=== PATIENT | female | born 1990 | race Caucasian/White ===

== ENCOUNTER 2021-11-17 14:46 | Inpatient (IN) | payer OTHER ==
[2021-11-17] MEDS ORDERED: hydrALAZINE 20 MG/ML VIAL SLOW IVP PRN ×2 (15:13→16:41)
[2021-11-17] MEDS ORDERED: Lactated Ringer's 1,000 ML IV SCH (15:15)
[2021-11-17] MEDS ORDERED: Betamet Acet/Betamet Na Ph 30 MG/5 ML VIAL IM SCH (16:00)
[2021-11-17] MEDS ORDERED: Acetaminophen 500 MG TAB PO PRN (16:41)
[2021-11-17] MEDS ORDERED: Ondansetron PF 4 MG/2 ML Vial IVP PRN (16:41)
[2021-11-17] MEDS ORDERED: Promethazine HCl 25 MG/ML VIAL IM PRN (16:41)
[2021-11-17 16:51] LABS: #Basophils 0.1 10x3/uL (0.0-0.2); #Eosinphils 0.2 10x3/uL (0.0-0.5); #Monocytes 0.8 10x3/uL (0.0-1.1); #Neutrophils 8.6 10x3/uL (1.5-8.4); %Basophils 0.5 % (0.0-2.0); %Eosinophils 1.8 % (0.0-6.0); %Lymphocytes 18.3 % (18.0-47.0); %Monocytes 6.9 % (0.0-10.0); Hemoglobin 9.3 g/dL (12.0-15.5); Mean Corpuscular HGB CONC 33.1 g/dL (32.0-36.0); Mean Corpuscular Hemoglobin 29.5 pg (27.0-33.0); Mean Corpuscular Volume 89.2 fl (81.6-98.3); Mean Platelet Volume 10.3 fl (7.4-10.4); Platelet Count 238 10x3/uL (150-450); Red Blood Cell (RBC) Count 3.15 10x6/uL (3.90-5.03); White Blood Cell (WBC) Count 11.9 10x3/uL (3.5-10.5)
[2021-11-17 17:37] VITALS: BMI 33.6
[2021-11-17] MEDS: Lactated Ringer's 1,000 ML IV SCH (20:27)
[2021-11-18] MEDS: Lactated Ringer's 1,000 ML IV SCH ×3 (00:08→18:16)
[2021-11-18] MEDS ORDERED: Zolpidem Tartrate 5 MG TAB PO SCH (00:15)
[2021-11-18] MEDS ORDERED: Prenatal Vitamin 1 TAB PO SCH (09:00)
[2021-11-18] MEDS ORDERED: ceFAZolin 2 GM/Dextrose 50 ML IVPB ONE (10:50)
[2021-11-18 11:29] LABS: RapidComm Collect By NURSE
[2021-11-18] MEDS ORDERED: Naloxone HCl 0.4 mg/ml Vial IV PRN (11:36)
[2021-11-18] MEDS ORDERED: diphenhydrAMINE 50 MG/ML VIAL IVP PRN (11:36)
[2021-11-18] MEDS ORDERED: diphenhydrAMINE 50 MG/ML VIAL IM PRN (11:36)
[2021-11-18] MEDS ORDERED: Ondansetron PF 4 MG/2 ML Vial IVP PRN ×2 (11:36→12:14)
[2021-11-18] MEDS ORDERED: Promethazine HCl 25 MG/ML VIAL IM PRN (11:36)
[2021-11-18] MEDS ORDERED: Zolpidem Tartrate 5 MG TAB PO PRN (11:36)
[2021-11-18] MEDS ORDERED: diphenhydrAMINE 25 MG CAP PO PRN ×2 (11:36→12:14)
[2021-11-18] MEDS ORDERED: Communication Order-Pharmacy FS SCH (11:45)
[2021-11-18] MEDS ORDERED: Lidocaine 1% PF 5 ML VIAL ONE ×2 (11:46→11:47)
[2021-11-18] MEDS ORDERED: PROPOFOL 20 ML ONE (11:47)
[2021-11-18] MEDS ORDERED: Dexamethasone 4 mg/ml Vial ONE (11:47)
[2021-11-18] MEDS ORDERED: Ondansetron PF 4 MG/2 ML Vial ONE (11:47)
[2021-11-18] MEDS ORDERED: PHENYLEPHRINE-NS 100 MCG/ML 10 ML SYRINGE ONE (11:47)
[2021-11-18] MEDS ORDERED: Ketorolac Tromethamine 30 MG/ML VIAL ONE (11:47)
[2021-11-18] MEDS ORDERED: Fentanyl 250 MCG/5 ML VIAL ONE (11:47)
[2021-11-18] MEDS ORDERED: Fentanyl 100 MCG/2 ML VIAL ONE (11:47)
[2021-11-18] MEDS ORDERED: Oxytocin 10 UNITS/ML VIAL ONE (11:49)
[2021-11-18 12:13] LABS: SARS-CoV-2 PCR by NAA Not Detected (NotDetected)
[2021-11-18] MEDS ORDERED: Bisacodyl 10 MG SUPP PR PRN (12:14)
[2021-11-18] MEDS ORDERED: Lanolin Ointment 7 GM TUBE TOP PRN (12:14)
[2021-11-18] MEDS ORDERED: Simethicone Chewable 80 MG TAB PO PRN (12:14)
[2021-11-18] MEDS ORDERED: Acetaminophen 325 MG TAB PO PRN (12:14)
[2021-11-18] MEDS ORDERED: Misoprostol 200 MCG TAB PR PRN (12:14)
[2021-11-18] MEDS ORDERED: hydrALAZINE 20 MG/ML VIAL SLOW IVP PRN (12:14)
[2021-11-18] MEDS ORDERED: Boostrix 0.5 ML (Tdap) VIAL IM ONE (12:14)
[2021-11-18] MEDS ORDERED: HYDROmorphone 2 MG/ML VIAL SLOW IVP PRN (12:22)
[2021-11-18] MEDS ORDERED: Meperidine HCl/PF 25 MG/ML VIAL SLOW IVP PRN (12:22)
[2021-11-18] MEDS ORDERED: Ondansetron HCl/PF 4 MG/2 ML Vial IVP PRN (12:22)
[2021-11-18] MEDS ORDERED: Fentanyl 100 MCG/2 ML VIAL SLOW IVP PRN (12:22)
[2021-11-18] MEDS: fentaNYL Citrate/PF 1,000 MCG in Sodium Chloride 0.9% 30 ML IV PRN (12:27)
[2021-11-18] MEDS ORDERED: Ketorolac Tromethamine 30 MG/ML VIAL IVP SCH (12:30)
[2021-11-18 12:54] LABS: RapidComm Collect By NURSE
[2021-11-18 13:18] LABS: Hemoglobin 8.9 g/dL (12.0-15.5); Mean Corpuscular HGB CONC 32.8 g/dL (32.0-36.0); Mean Corpuscular Hemoglobin 29.7 pg (27.0-33.0); Mean Corpuscular Volume 90.3 fl (81.6-98.3); Mean Platelet Volume 10.5 fl (7.4-10.4); Platelet Count 227 10x3/uL (150-450); White Blood Cell (WBC) Count 18.9 10x3/uL (3.5-10.5)
[2021-11-18] MEDS ORDERED: NS w/ Oxytocin 30 units 500 ML ONE (14:55)
[2021-11-19] MEDS: fentaNYL Citrate/PF 1,000 MCG in Sodium Chloride 0.9% 30 ML IV PRN (00:32)
[2021-11-19 03:28] LABS: Hemoglobin 8.5 g/dL (12.0-15.5); Mean Corpuscular Hemoglobin 30.4 pg (27.0-33.0); Mean Corpuscular Volume 89.3 fl (81.6-98.3); Mean Platelet Volume 10.6 fl (7.4-10.4); Platelet Count 234 10x3/uL (150-450); RBC Distribution Width 12.9 % (11.5-14.5); White Blood Cell (WBC) Count 16.4 10x3/uL (3.5-10.5)
[2021-11-19] MEDS: Lactated Ringer's 1,000 ML IV SCH ×5 (04:30→21:13)
[2021-11-19] MEDS: Docusate 100 MG CAP PO SCH ×3 (05:47→20:18)
[2021-11-19] MEDS: Ferrous Sulfate 325 MG TAB PO SCH ×3 (05:48→20:18)
[2021-11-19 08:14] LABS: Syphilis Antibody Nonreactive (Nonreactive); Syphilis Antibody Index 0.07 S/CO (<1.00 Non-Reactive)
[2021-11-19] MEDS: Prenatal Vitamin 1 TAB PO SCH (09:06)
[2021-11-19] MEDS: HYDROcodone/Acetaminophen 5/325 mg Tablet PO PRN (12:39)
[2021-11-19] MEDS: Ibuprofen 800 MG TAB PO SCH ×2 (14:44→20:18)
[2021-11-19 20:47] LABS: Hep B Surf Ag Non-Reactive S/CO (NonReactive)
[2021-11-19 20:48] LABS: HBSAg Index 0.18 S/CO (0-0.99)
[2021-11-20] MEDS: HYDROcodone/Acetaminophen 5/325 mg Tablet PO PRN ×4 (00:07→22:49)
[2021-11-20] MEDS: Ibuprofen 800 MG TAB PO SCH ×3 (04:26→22:48)
[2021-11-20] MEDS: Prenatal Vitamin 1 TAB PO SCH (08:54)
[2021-11-20] MEDS: Docusate 100 MG CAP PO SCH ×2 (08:54→22:48)
[2021-11-20] MEDS: Ferrous Sulfate 325 MG TAB PO SCH ×2 (08:54→22:47)
[2021-11-21] MEDS: Ibuprofen 800 MG TAB PO SCH ×3 (06:34→23:01)
[2021-11-21] MEDS: Docusate 100 MG CAP PO SCH ×2 (11:37→23:02)
[2021-11-21] MEDS: Ferrous Sulfate 325 MG TAB PO SCH ×2 (11:37→23:02)
[2021-11-21] MEDS: Prenatal Vitamin 1 TAB PO SCH (11:37)
[2021-11-21] MEDS: HYDROcodone/Acetaminophen 5/325 mg Tablet PO PRN ×2 (11:48→17:27)
[2021-11-22] MEDS: HYDROcodone/Acetaminophen 5/325 mg Tablet PO PRN (00:07)
[2021-11-22] MEDS: Ibuprofen 800 MG TAB PO SCH ×2 (05:26→14:01)
[2021-11-22 07:43] VITALS: BP 111/79; TEMP 98.5
[2021-11-22] MEDS: Ferrous Sulfate 325 MG TAB PO SCH (08:44)
[2021-11-22] MEDS: Docusate 100 MG CAP PO SCH (08:44)
[2021-11-22] MEDS: Prenatal Vitamin 1 TAB PO SCH (08:44)
== END 2021-11-22 14:15 | disposition home or self-care (01) | DRG 787 ==
LOC: CSHLD/OP 14:46 → EDSTATUS 15:54 → CSHLD 19:54 → OBSVTOIN 11-18 08:00 → CSHPED 11-18 17:15 → CSHPP 11-20 17:30
PROVIDERS: ADMIT Obstetrics & Gynecology; ATTEND Obstetrics & Gynecology
PROC: 10D00Z1 Extraction of Products of Conception, Low, Open Approach (ICD-10-PCS; principal; 2021-11-18)
DX: O44.13 Complete placenta previa with hemorrhage, third trimester (principal); O10.913 Unspecified pre-existing hypertension complicating pregnancy, third trimester; Z20.822 Contact with and (suspected) exposure to COVID-19; Z3A.29 29 weeks gestation of pregnancy; O99.283 Endocrine, nutritional and metabolic diseases complicating pregnancy, third trimester; O99.843 Bariatric surgery status complicating pregnancy, third trimester; E28.2 Polycystic ovarian syndrome; E03.9 Hypothyroidism, unspecified; Z79.890 Hormone replacement therapy; Z79.899 Other long term (current) drug therapy; Z79.84 Long term (current) use of oral hypoglycemic drugs; Z82.49 Family history of ischemic heart disease and other diseases of the circulatory system; Z83.49 Family history of other endocrine, nutritional and metabolic diseases; Z88.8 Allergy status to other drugs, medicaments and biological substances; Z91.040 Latex allergy status; Z88.0 Allergy status to penicillin; Z91.048 Other nonmedicinal substance allergy status; O45.93 Premature separation of placenta, unspecified, third trimester; Z37.0 Single live birth
CPT/HCPCS: 36415; 36430; 51702; 76815; 82805; 85025; 85027; 86762; 86780; 86850; 86900; 86901; 87340; 88307; 96372; 99285; G0378; J0702; J1100; J1885; J2405; J2590; J2704; J3010; J3490; J7120; U0003; U0005

== ENCOUNTER 2021-12-13 19:22 | Emergency (ER) | payer OTHER ==
[2021-12-13] MEDS ORDERED: Sulfameth/Trimethoprim DS 800-160mg TAB ONE (22:00)
== END 2021-12-13 22:01 | disposition home or self-care (01) ==
LOC: CSHERS 19:22
DX: L02.211 Cutaneous abscess of abdominal wall (principal); E03.9 Hypothyroidism, unspecified; I10 Essential (primary) hypertension; Z79.899 Other long term (current) drug therapy
CPT/HCPCS: 10060; 87070; 87077; 87186; 87205